=== PATIENT | male | born 1960 | race Caucasian/White ===

== ENCOUNTER 2018-04-04 10:44 | Emergency (ER) | payer OTHER ==
[~2018-04-04] VITALS: Ht 175.3 cm; Wt 69.9 kg
[2018-04-04] MEDS ORDERED: SYNTHROID150 MCG (10:56)
[2018-04-04] MEDS ORDERED: PREDNISONE10 MG (10:57)
== END 2018-04-04 11:45 | disposition home or self-care (01) ==
LOC: ER 10:44
DX: T78.49XA Other allergy, initial encounter (principal); R21 Rash and other nonspecific skin eruption

== ENCOUNTER → 2018-06-07 16:22 | Outpatient (CLI) | payer OTHER ==
[~2018-06-07 16:22] MED LIST: PREDNISONE10 MG; SYNTHROID150 MCG
== END | disposition home or self-care (01) ==
LOC: LAB 16:22
DX: Z00.00 Encounter for general adult medical examination without abnormal findings (principal)

== ENCOUNTER 2018-06-23 07:51 | Inpatient (IN) | payer OTHER ==
[~2018-06-23] VITALS: Ht 175.3 cm; Wt 73.5 kg
[2018-06-29] MEDS ORDERED: LIPITOR40 MG PO (11:31)
[2018-06-29] MEDS ORDERED: PANTOPRAZOLE SO40 MG PO (11:31)
[2018-06-29] MEDS ORDERED: LEVOTHYROXINE150 MCG PO (11:31)
[2018-06-29] MEDS ORDERED: FOLIC ACID1 MG PO (11:32)
[2018-06-29] MEDS ORDERED: Intestinex CAP PO (11:32)
[2018-06-29] MEDS ORDERED: VITAMIN B-1250 MCG PO (11:34)
[2018-06-29] MEDS ORDERED: PREDNISONE20 MG PO (11:34)
== END 2018-06-29 12:26 | DRG 478 ==
LOC: ER 07:51 → SURG 21:36 → SURH 21:36 → SEC-K 21:36 → MEDI 21:58 → SURG 22:10 → SURH 06-25 16:40
PROVIDERS: Orthopaedic Surgery
PROC: BW2GZZZ Computerized Tomography (CT Scan) of Pelvic Region (ICD-10-PCS; 2018-06-23)
PROC: 0QS634Z Reposition Right Upper Femur with Internal Fixation Device, Percutaneous Approach (ICD-10-PCS; 2018-06-24)
PROC: 0QR Lower Bones, Replacement (ICD-10-PCS; 2018-06-24)
PROC: B246ZZZ Ultrasonography of Right and Left Heart (ICD-10-PCS; 2018-06-24)
PROC: 0QB63ZX Excision of Right Upper Femur, Percutaneous Approach, Diagnostic (ICD-10-PCS; principal; 2018-06-24 07:45)
PROC: 8E0ZXY6 Isolation (ICD-10-PCS; 2018-06-25)
PROC: 30233N1 Transfusion of Nonautologous Red Blood Cells into Peripheral Vein, Percutaneous Approach (ICD-10-PCS; 2018-06-28)
DX: S72.091A Other fracture of head and neck of right femur, initial encounter for closed fracture (principal); C83.18 Mantle cell lymphoma, lymph nodes of multiple sites; Y93.55 Activity, bike riding; Y93.89 Activity, other specified; Y92.89 Other specified places as the place of occurrence of the external cause; Y99.8 Other external cause status; I25.10 Atherosclerotic heart disease of native coronary artery without angina pectoris; I10 Essential (primary) hypertension; E78.4 Other hyperlipidemia; Z92.21 Personal history of antineoplastic chemotherapy; E03.8 Other specified hypothyroidism; D64.89 Other specified anemias; D69.59 Other secondary thrombocytopenia; R50.82 Postprocedural fever

== ENCOUNTER 2018-07-11 09:17 | Outpatient (CLI) | payer OTHER ==
[~2018-07-11 09:17] MED LIST changes: +FOLIC ACID1 MG PO; +Intestinex CAP PO; +LEVOTHYROXINE150 MCG PO; +LIPITOR40 MG PO; +PANTOPRAZOLE SO40 MG PO; +PREDNISONE20 MG PO; +VITAMIN B-1250 MCG PO
== END 2018-07-11 09:28 | disposition home or self-care (01) ==
LOC: RAD 501 09:17
DX: M25.551 Pain in right hip (principal)

== ENCOUNTER 2018-07-30 08:20 | Outpatient (CLI) | payer OTHER | END 2018-07-30 08:30 | disposition home or self-care (01) | LOC: RAD 501 08:20 | DX: S72.041D Displaced fracture of base of neck of right femur, subsequent encounter for closed fracture with routine healing (principal) ==

== ENCOUNTER 2018-08-21 08:31 | Outpatient (CLI) | payer OTHER | END 2018-08-21 08:49 | disposition home or self-care (01) | LOC: RAD 501 08:31 | DX: G56.21 Lesion of ulnar nerve, right upper limb (principal); S72.041D Displaced fracture of base of neck of right femur, subsequent encounter for closed fracture with routine healing ==

== ENCOUNTER 2018-09-26 16:07 | Outpatient (CLI) | payer OTHER | END 2018-09-26 16:15 | disposition home or self-care (01) | LOC: RAD 16:07 | DX: S72.041D Displaced fracture of base of neck of right femur, subsequent encounter for closed fracture with routine healing (principal) ==

== ENCOUNTER 2019-01-30 12:39 | Outpatient (CLI) | payer OTHER | END 2019-01-30 12:54 | disposition home or self-care (01) | LOC: RAD 12:39 | DX: M87.051 Idiopathic aseptic necrosis of right femur (principal); S72.041D Displaced fracture of base of neck of right femur, subsequent encounter for closed fracture with routine healing ==

== ENCOUNTER → 2019-05-05 13:13 | Outpatient (CLI) | payer OTHER | END | disposition home or self-care (01) | LOC: NUCLEAR 13:00 | DX: M81.0 Age-related osteoporosis without current pathological fracture (principal) ==

== ENCOUNTER → 2020-10-27 | Emergency (ER) | payer OTHER ==
[~2020-10-27] VITALS: Ht 175.3 cm; Wt 79.4 kg
== END | disposition left against medical advice (07) ==
LOC: ER 16:40
DX: Z53.20 Procedure and treatment not carried out because of patient's decision for unspecified reasons (principal)

== ENCOUNTER 2023-01-03 10:07 | Outpatient (CLI) | payer OTHER | END 2023-01-03 10:17 | disposition home or self-care (01) | LOC: RAD 10:07 | PROVIDERS: ATTEND General Practice | DX: M79.641 Pain in right hand (principal); S69.91XA Unspecified injury of right wrist, hand and finger(s), initial encounter ==

== ENCOUNTER 2023-01-06 07:17 | Outpatient (CLI) | payer OTHER | END 2023-01-06 07:39 | disposition home or self-care (01) | LOC: LAB 07:17 | PROVIDERS: ATTEND Orthopaedic Surgery | DX: E55.9 Vitamin D deficiency, unspecified (principal); M85.9 Disorder of bone density and structure, unspecified; E56.1 Deficiency of vitamin K; E21.3 Hyperparathyroidism, unspecified; E88.89 Other specified metabolic disorders; M81.8 Other osteoporosis without current pathological fracture ==

== ENCOUNTER 2025-10-04 13:04 | Emergency (ER) | payer OTHER ==
[~2025-10-04] VITALS: Ht 175.3 cm; Wt 85.3 kg
[2025-10-04 14:04] VITALS: BP 118/80; O2SAT 98
== END 2025-10-04 14:48 | disposition home or self-care (01) ==
LOC: ER 13:04
DX: J32.9 Chronic sinusitis, unspecified (principal); E03.8 Other specified hypothyroidism; Z91.0110 Allergy to milk products, unspecified